=== PATIENT | female | born 1935 | race Two or more races ===

== ENCOUNTER 2017-12-13 22:47 | Emergency (ER) | payer OTHER ==
[2017-12-13 22:52] VITALS: Ht 152.4 cm
[2017-12-14 00:13] VITALS: BP 190/83
== END 2017-12-14 00:13 | disposition home or self-care (01) ==
LOC: ED 22:47
DX: M54.31 Sciatica, right side (principal); I10 Essential (primary) hypertension; E78.00 Pure hypercholesterolemia, unspecified; Z88.8 Allergy status to other drugs, medicaments and biological substances
CPT/HCPCS: J2270; Q0162

== ENCOUNTER 2018-03-20 10:14 | Emergency (ER) | payer OTHER ==
[~2018-03-20] VITALS: Ht 154.9 cm; Wt 59.0 kg
[2018-03-20 10:23] VITALS: Ht 154.9 cm; Wt 59.0 kg
[2018-03-20 11:16] LABS: PLATELET COUNT 253 x10^3mcL (130-400)
[2018-03-20 11:22] LABS: CALCIUM 9.1 mg/dL (8.5-10.1); CARBON DIOXIDE 26.2 mmol/L (21-32); CHLORIDE SERUM 109 mmol/L (98-107); CREATININE SERUM 0.8 mg/dL (0.6-1.0); GLUCOSE SERUM 117 mg/dL (74-106); POTASSIUM SERUM 4.4 mmol/L (3.5-5.1); SODIUM SERUM 142 mmol/L (136-145)
[2018-03-20 11:26] LABS: ALBUMIN 3.7 g/dL (3.4-5.0); ALKALINE PHOSPHATASE 70 U/L (46-116); ALT/SGPT 25 U/L (14-59); AST/SGOT 22 U/L (15-37); BILIRUBIN TOTAL 0.68 mg/dL (0.20-1.00); LIPASE 190 IU/L (73-393); TOTAL PROTEIN, SERUM 7.1 g/dL (6.4-8.2)
[2018-03-20 11:35] LABS: BASOPHIL % 2.9 % (0-2); RED CELL DISTRIBUTION WIDTH 15.7 % (11.5-14.5)
[2018-03-20 13:43] VITALS: BP 133/71
== END 2018-03-20 13:43 | disposition home or self-care (01) ==
LOC: ED 10:14
PROVIDERS: Emergency Medicine
DX: R11.10 Vomiting, unspecified (principal); R19.7 Diarrhea, unspecified; I10 Essential (primary) hypertension; E78.00 Pure hypercholesterolemia, unspecified; Z88.8 Allergy status to other drugs, medicaments and biological substances
CPT/HCPCS: 83880; 87046; 87046-59; J2405; J3010

== ENCOUNTER 2018-03-21 22:52 | Inpatient (IN) | payer OTHER ==
[~2018-03-21] VITALS: Ht 152.4 cm; Wt 63.1 kg
[2018-03-21 23:09] VITALS: Ht 152.4 cm; Wt 63.1 kg
[2018-03-21 23:43] LABS: BASOPHIL % 0.3 % (0-2); PLATELET COUNT 259 x10^3mcL (130-400)
[2018-03-21 23:49] LABS: CALCIUM 8.8 mg/dL (8.5-10.1); CARBON DIOXIDE 25.9 mmol/L (21-32); CHLORIDE SERUM 109 mmol/L (98-107); CREATININE SERUM 1.1 mg/dL (0.6-1.0); GLUCOSE SERUM 125 mg/dL (74-106); POTASSIUM SERUM 3.7 mmol/L (3.5-5.1); SODIUM SERUM 143 mmol/L (136-145)
[2018-03-21 23:53] LABS: ALBUMIN 3.7 g/dL (3.4-5.0); ALKALINE PHOSPHATASE 74 U/L (46-116); ALT/SGPT 27 U/L (14-59); AST/SGOT 27 U/L (15-37); BILIRUBIN TOTAL 0.63 mg/dL (0.20-1.00); LIPASE 171 IU/L (73-393); TOTAL PROTEIN, SERUM 7.4 g/dL (6.4-8.2)
[2018-03-22] MEDS ORDERED: ASPIR 8181 MG PO (01:11)
[2018-03-22] MEDS ORDERED: LIPI20 PO (01:12)
[2018-03-22] MEDS ORDERED: LEVOTHYROXIN0.025 M2 (01:12)
[2018-03-22] MEDS ORDERED: TOPROL XL25 MG PO (01:14)
[2018-03-22] MEDS ORDERED: HYDRALAZINE HCL50 MG PO (01:14)
[2018-03-22 01:59] VITALS: BP 140/55
[2018-03-22 02:54] LABS: T3 TOTAL 0.9 ng/mL
[2018-03-22 03:38] LABS: FREE T4 1.09 ng/dL (0.76-1.46); FREE THYROXINE INDEX 2.4 ug/dL (1.4-4.5); T4(THYROXINE) 7.2 ug/dL (4.7-13.3)
[2018-03-22 04:00] LABS: MAGNESIUM 2.2 mg/dL (1.8-2.4); PHOSPHOROUS 2.8 mg/dL (2.5-4.9)
[2018-03-22 04:03] LABS: CHOLESTEROL/HDL RATIO 1.7
[2018-03-22 04:40] VITALS: BP 155/60
[2018-03-22 06:08] LABS: BASOPHIL % 0.2 % (0-2); PLATELET COUNT 251 x10^3mcL (130-400)
[2018-03-22 06:43] LABS: CALCIUM 8.4 mg/dL (8.5-10.1); CARBON DIOXIDE 25.1 mmol/L (21-32); CHLORIDE SERUM 107 mmol/L (98-107); CREATININE SERUM 0.8 mg/dL (0.6-1.0); GLUCOSE SERUM 100 mg/dL (74-106); POTASSIUM SERUM 4.1 mmol/L (3.5-5.1); SODIUM SERUM 139 mmol/L (136-145)
[2018-03-22 07:04] LABS: RED CELL DISTRIBUTION WIDTH 15.6 % (11.5-14.5)
[2018-03-22 08:11] LABS: UA SPECIFIC GRAVITY 1.025 (1.005-1.035); microscopic required? YES; urine erythrocyte NEGATIVE (NEGATIVE)
[2018-03-22 09:02] VITALS: BP 110/50
[2018-03-22 17:46] VITALS: BP 132/51
[2018-03-22] MEDS ORDERED: LEVOFLOXACIN500 M1 PO (19:20)
[2018-03-22] MEDS ORDERED: BD LACTINEX1.4 MG PO (19:22)
[2018-03-22] MEDS ORDERED: ONDANSETRON4 M3 PO (19:24)
[2018-03-22 19:25] VITALS: BP 132/51
[2018-03-22 19:33] VITALS: BP 123/68
== END 2018-03-22 20:09 | disposition home or self-care (01) | DRG 249 ==
LOC: ED 22:52 → MU 03-22 00:51
PROVIDERS: Emergency Medicine; Internal Medicine
DX: K52.9 Noninfective gastroenteritis and colitis, unspecified (principal); N17.0 Acute kidney failure with tubular necrosis; R73.03 Prediabetes; I10 Essential (primary) hypertension; E03.9 Hypothyroidism, unspecified; E78.5 Hyperlipidemia, unspecified; Z79.82 Long term (current) use of aspirin; Z68.25 Body mass index [BMI] 25.0-25.9, adult; E78.00 Pure hypercholesterolemia, unspecified; Z88.8 Allergy status to other drugs, medicaments and biological substances
CPT/HCPCS: 83880; 84439; 87804; 90658; J2405; J3010; J7030; Q0092

== ENCOUNTER 2018-04-12 09:12 | Emergency (ER) | payer OTHER ==
[~2018-04-12] VITALS: Ht 149.9 cm; Wt 59.0 kg
[~2018-04-12 09:12] MED LIST: ASPIR 8181 MG PO; BD LACTINEX1.4 MG PO; HYDRALAZINE HCL50 MG PO; LEVOFLOXACIN500 M1 PO; LEVOTHYROXIN0.025 M2; LIPI20 PO; ONDANSETRON4 M3 PO; TOPROL XL25 MG PO
[2018-04-12 09:22] VITALS: Ht 149.9 cm; Wt 59.0 kg
[2018-04-12 10:12] LABS: BASOPHIL % 0.6 % (0-2); PLATELET COUNT 263 x10^3mcL (130-400)
[2018-04-12 10:30] LABS: CALCIUM 9.5 mg/dL (8.5-10.1); CARBON DIOXIDE 25.7 mmol/L (21-32); CHLORIDE SERUM 108 mmol/L (98-107); CREATININE SERUM 0.8 mg/dL (0.6-1.0); GLUCOSE SERUM 115 mg/dL (74-106); POTASSIUM SERUM 4.5 mmol/L (3.5-5.1); SODIUM SERUM 142 mmol/L (136-145)
[2018-04-12 10:36] LABS: ALBUMIN 3.6 g/dL (3.4-5.0); ALKALINE PHOSPHATASE 62 U/L (46-116); ALT/SGPT 22 U/L (14-59); AST/SGOT 32 U/L (15-37); BILIRUBIN TOTAL 0.94 mg/dL (0.20-1.00); TOTAL PROTEIN, SERUM 7.3 g/dL (6.4-8.2)
[2018-04-12 10:47] LABS: CK-MB 1.3 ng/mL (0-3.6)
[2018-04-12 11:28] VITALS: BP 108/53
== END 2018-04-12 12:26 | disposition home or self-care (01) ==
LOC: ED 09:12
PROVIDERS: Emergency Medicine
DX: R10.13 Epigastric pain (principal); I10 Essential (primary) hypertension; E78.00 Pure hypercholesterolemia, unspecified; Z88.8 Allergy status to other drugs, medicaments and biological substances
CPT/HCPCS: J0360; J2405; Q0092

== ENCOUNTER 2019-07-11 21:37 | Emergency (ER) | payer OTHER ==
[~2019-07-11] VITALS: Ht 165.1 cm; Wt 59.0 kg
[2019-07-11 21:44] VITALS: Ht 165.1 cm; Wt 59.0 kg
[2019-07-11 23:56] LABS: CALCIUM 9.3 mg/dL (8.5-10.1); CARBON DIOXIDE 28.3 mmol/L (21-32); CHLORIDE SERUM 104 mmol/L (98-107); GLUCOSE SERUM 114 mg/dL (74-106); POTASSIUM SERUM 4.1 mmol/L (3.5-5.1); SODIUM SERUM 138 mmol/L (136-145)
[2019-07-12 00:01] LABS: ALBUMIN 3.4 g/dL (3.4-5.0); ALKALINE PHOSPHATASE 53 U/L (46-116); ALT/SGPT 22 U/L (14-59); AST/SGOT 16 U/L (15-37); BASOPHIL % 0.4 % (0-2); BILIRUBIN TOTAL 0.3 mg/dL (0.20-1.00); PLATELET COUNT 290 x10^3mcL (130-400); RED CELL DISTRIBUTION WIDTH 14.8 % (11.5-14.5)
[2019-07-12 00:48] VITALS: BP 131/71
== END 2019-07-12 00:48 | disposition home or self-care (01) ==
LOC: ED 21:37
PROVIDERS: Emergency Medicine
DX: I10 Essential (primary) hypertension (principal); R00.2 Palpitations; E78.00 Pure hypercholesterolemia, unspecified; Z88.8 Allergy status to other drugs, medicaments and biological substances
CPT/HCPCS: 36415; 85378; Q0092